=== PATIENT | male | born 1985 | race Two or more races ===

== ENCOUNTER 2024-04-02 19:33 | Emergency (ER) | payer MEDICAID, OTHER ==
[~2024-04-02] VITALS: Ht 157.5 cm; Wt 68.0 kg
[2024-04-02] MEDS: diazePAM 5 MG TAB PO ONE (20:56)
[2024-04-02 20:59] VITALS: BP 144/93; PULSE 72; RESP 20; TEMP 98.4; O2SAT 99
[2024-04-02 21:09] LABS: Basophils # (auto) 0 10 ^3/uL (0-0.2); Basophils % (auto) 0.5 % (0.0-2.0); Eosinophils # (auto) 0.2 10 ^3/uL (0-0.8); Eosinophils % (auto) 1.4 % (0.0-7.0); Hematocrit 38.2 % (41.0-53.0); Lymphocytes # (auto) 1.7 10 ^3/uL (0.4-5.4); Lymphocytes % (auto) 16.2 % (10.0-50.0); Mean Corpuscular Hemoglobin 29.7 pg (28.0-32.0); Mean Corpuscular Hgb Conc. 34.1 g/dL (32.0-36.0); Mean Corpuscular Volume 87.1 fL (80.0-100.0); Monocytes # (auto) 0.8 10 ^3/uL (0-1.3); Neutrophils # (auto) 7.8 10 ^3/uL (1.6-8.6); Neutrophils % (auto) 73.9 % (37.0-80.0); Red Blood Cells 4.38 10^6/uL (4.5-5.90); Red Cell Distribution Width 13.3 % (11.8-14.3); White Blood Cell 10.5 10^3/uL (4.4-10.8)
[2024-04-02 21:30] LABS: Acetaminophen < 2.0 UG/ML (10.0-20.0); Alanine Aminotransferase 22 U/L (7-40); Albumin 4.8 g/dL (3.2-4.8); Alkaline Phosphatase 75 U/L (46-116); Anion Gap 5 (5-15); Aspartate Aminotransferase 23 U/L (13-40); BUN/Creatinine Ratio 12.1 (10.0-20.0); Bilirubin, Total 0.3 mg/dL (0.2-1.0); Blood Alcohol < 3.0 mg/dL (<10); Blood Urea Nitrogen 17 mg/dL (9-23); Calcium 10.2 mg/dL (8.5-10.1); Carbon Dioxide 28 mmol/L (20-30); Chloride 105 mmol/L (98-107); Glucose 121 mg/dL (74-106); Potassium 3.9 mmol/L (3.5-5.1); Sodium 138 mmol/L (136-145); Total Protein 7.4 g/dL (5.7-8.2)
[2024-04-02 21:53] LABS: Salicylate < 3.0 mg/dL (2.8-20.0)
[2024-04-02] MEDS: HYDROcodone-ACET 10/325MG TAB PO ONE (22:45)
[2024-04-02] MEDS: METOCLOPRAMIDE HCL 10 MG TAB PO ONE (22:45)
== END 2024-04-03 07:57 | disposition left against medical advice (07) ==
LOC: ER 19:33 → EDBD 19:33 → ER 04-03 07:57
DX: F23 Brief psychotic disorder (principal); R45.851 Suicidal ideations
CPT/HCPCS: 36415; 80053; 80320; 80329; 85025; 99284; J8597